=== PATIENT | female | born 1960 | race Caucasian/White ===

== ENCOUNTER 2024-03-06 08:56 | Emergency (ER) | payer MEDICARE, SELFPAY ==
--- NOTE | 2024-03-06 09:00 | XRR_ITS ---
PROCEDURE INFORMATION: Exam: XR Chest Exam date and time: 03/06/2024 9:17 AM Age: 64 years old Clinical indication: Cough and dyspnea; Additional info: Dyspnea/cough TECHNIQUE: Imaging protocol: Radiologic exam of the chest. Views: 1 view. COMPARISON: No relevant prior studies available. FINDINGS: Lungs: Unremarkable. No consolidation. Pleural spaces: Unremarkable. No pleural effusion. No pneumothorax. Heart/Mediastinum: Unremarkable. No cardiomegaly. Bones/joints: Unremarkable. XR/XR chest 1V portable [id number] IMPRESSION: No acute findings.
--- NOTE | 2024-03-06 09:02 | ED_ITS ---
HPI - General Adult 2 General: Chief complaint: Headache Stated complaint: B/p high,headache,n Time Seen by Provider: 03/06/24 09:00 History of Present Illness: 64-year-old female 64-year-old female pr esents to the emergency room with complaints of headache elevated blood pressure generally not feeling well. She has not had any difficulty with speech. She has had some nausea with and dizziness. She was recently diagnosed with hypertension and started on lisinopril she is also been started on Lexapro although she stopped that after 3 days she is only taking 10 mg a day no recent head trauma. She has no focal neurologic deficits. She has noted some loose stool but no other symptoms. Associated symptoms: Deny chest pain, dyspnea or rash Related Data Previous Rx's Medication Instructions Recorded lisinopril 20 mg tablet 20 mg PO BID #30 tabs 03/06/24 Allergies Allergy/AdvReac Type Severity Reaction Status Date / Time No Known Allergies Allergy Verified 03/06/24 09:11 Review of Systems 2 Const: Denies: fever(s) or chills Card: Denies: chest pain Resp: Denies: dyspnea GI: Denies: abdominal pain : Denies: dysuria, urinary frequency or urinary urgency Musc: Denies: neck pain or back pain Skin/Breast: Denies: rash PFSH ED 2 PFSH: Medical History (Updated 03/06/24 @ 10:45 by Barrera Lewis DO) Anxiety Depression Hypertension Physical Exam 2 Const: COMMON NORMALS: no acute distress GENERAL APPEARANCE: cooperative and comfortable ORIENTATION/CONSCIOUSNESS: Yes awake, Yes oriented to person, Yes oriented to place and Yes oriented to time HENMT: COMMON NORMALS: normocephalic, atraumatic and hearing grossly normal bilaterally HEAD & SCALP: normocephalic and atraumatic Resp: COMMON NORMALS: normal respiratory effort, No retractions, No use of accessory muscles and clear to auscultation bilaterally AUSCULTATION: clear to auscultation bilaterally Cardio: COMMON NORMALS: regular rate, regular rhythm and No murmurs present (Cardio) RATE: regular rate RHYTHM: regular rhythm GI: COMMON NORMALS: Soft to palpation and No hepatosplenomegaly present A USCULTATION: Yes normoactive bowel sounds PALPATION: Yes Soft to palpation, No Tenderness to palpation present (GI), No Guarding due to palpation present (GI) and Yes No hepatosplenomegaly present Extremity: COMMON NORMALS: normal to inspection, capillary refill normal, no clubbing, cyanosis or edema, no calf tenderness and no pedal edema Neuro: SENSORIUM/ORIENTATION: Yes oriented to person, Yes oriented to place and Yes oriented to time Skin: COMMON NORMALS: no rashes or lesions noted GENERAL SKIN EXAM: no rashes or lesions noted Course 2 Vital Signs: Vital signs: Vital Signs Temperature 98.1 F 03/06/24 09:04 Pulse Rate 69 03/06/24 10:52 Respiratory Rate 17 03/06/24 10:52 Blood Pressure 133/86 03/06/24 10:52 Pulse Oximetry 96 03/06/24 10:52 Oxygen Delivery Me thod Room Air 03/06/24 09:04 MDM - General Adult Medical Decision Making Blood pressure is improved. Neurologic exam does not show any deficits. Her headache has improved blood pressure is normalized still mildly high. She is able to ambulate without difficulty. She has no ataxia. Will discharge patient home with increasing her lisinopril to 20 mg twice daily. Have her follow-up with her primary care doctor return if she has any problems. Medical Records I reviewed the patient's medical records. Lab Data I reviewed the patient's lab results. 03/06/24 09:10 03/06/24 09:10 Radiology Impressions Chest X-Ray 03/06/24 09:00 IMPRESSION: No acute findings. Head CT 03/06/24 09:26 IMPRESSION: 1. Atrophy with minimal small-vessel ischemic change. Laboratory Results WBC 9.19 10^3/uL (3.29-11.43) 03/06/24 09:10 RBC 5.33 10^6/uL (3.85-5.65) 03/06/24 09:10 Hgb 15.00 g/dL (11.27-16.99) 03/06/24 09:10 Hct 44.0 % (36-47) 03/06/24 09:10 MCV 82.6 fl (85-98) L 03/06/24 09:10 MCH 28.1 pg (27-33) 03/06/24 09:10 MCHC 34.1 g/dL (30-55) 03/06/24 09:10 RDW 13.5 % (12.1-15.1) 03/06/24 09:10 Plt Count 269 10^3/cmm (157-399) 03/06/24 09:10 MPV 9.8 fL (7.4-10.4) 03/06/24 09:10 Neut % (Auto) 74.3 % 03/06/24 09:10 Lymph % (Auto) 18.3 % 03/06/24 09:10 [place] % (Auto) 5.0 % 03/06/24 09:10 Eos % (Auto) 1.2 % 03/06/24 09:10 Baso % (Auto) 0.4 % 03/06/24 09:10 Neut # (Auto) 6.83 10^3/uL (1.8-7.7) 03/06/24 09:10 Lymph # (Auto) 1.7 10^3/uL (0.8-4.8) 03/06/24 09:10 [place] # (Auto) 0.5 10^3/uL (0.2-0.9) 03/06/24 09:10 Eos # (Auto) 0.1 10^3/uL (0.0-0.8) 03/06/24 09:10 Baso # (Auto) 0.0 10^3/uL (0.0-0.1) 03/06/24 09:10 Nucleated RBC % (auto) 0 % 03/06/24 09:10 Nucleated RBCs # 0.0 /100WBC 03/06/24 09:10 Sodium 138 mmol/L (136-145) 03/06/24 09:10 Potassium 4.6 mmol/L (3.5-5.1) 03/06/24 09:10 Chloride 100 mmol/L (98-107) 03/06/24 09:10 Carbon Dioxide 27 mmol/L (22-29) 03/06/24 09:10 Anion Gap 15.6 (5-19) 03/06/24 09:10 BUN 15 mg/dL (8-23) 03/06/24 09:10 Creatinine 0.9 mg/dL (0.5-0.9) 03/06/24 09:10 GFR Calculation 62.8 mL/min (90-130) L 03/06/24 09:10 Glucose 138 mg/dL (65-115) H 03/06/24 09:10 Calculated Osmolality 289 mOsm/kg (285-295) 03/06/24 09:10 Calcium 9.4 mg/dL (8.5-10.5) 03/06/24 09:10 Total Bilirubin 0.6 mg/dL (0.15-1.2) 03/06/24 09:10 AST 30 U/L (0-32) 03/06/24 09:10 ALT 17 U/L (0-33) 03/06/24 09:10 Alkaline Phosphatase 113 U/L (35-105) H 03/06/24 09:10 Total Protein 7.4 g/dL (6.6-8.7) 03/06/24 09:10 Albumin 4.6 g/dL (3.5-5.2) 03/06/24 09:10 Globulin 2.8 g/dL (1.3-4.6) 03/06/24 09:10 Coronavirus (PCR) Negative (Negative) 03/06/24 09:35 Influenza A (PCR) Negative (Negative) 03/06/24 09:35 Influenza Type B (PCR) Negative (Negative) 03/06/24 09:35 RSV (PCR) Negative (Negative) 03/06/24 09:35 All radiology interpretation(s) finalized by discharge Discharge Plan Discharge Patient Disposition: Home Clinical Impression: Hypertension, Headache Prescriptions: New lisinopril 20 mg tablet 20 mg PO BID Qty: 30 0RF Discharge Orders: Discharge ED (Routine); Ordered 03/06/24 Ordered By: Barrera Lewis Discharge Diet: Usual diet Discharge Activity: Increase activity as tolerated Patient Instructions: Opioid Safety, Pain Management Activity Restrictions/Additional Instructions: Thank you for choosing [facility] for your healthcare needs today. It is very important that you follow up as instructed or that you return to the Emergency Department should you have concerns or if your condition changes or worsens in any way. You were seen today for elevated blood pressure and headache. Laboratory tests and EKG was normal. 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
[2024-03-06 09:04] VITALS: BP 212/95; PULSE 76; RESP 16; TEMP 36.7; O2SAT 100; BMI 34.4
--- NOTE | 2024-03-06 09:04 | ECG_ITS ---
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 Measurements Intervals [place] Rate: 73 P: 42 ID: [id number] QRS: 14 QRSD: 86 T: 30 QT: 381 QTc: 422 Interpretive Statements SINUS RHYTHM LOW QRS VOLTAGE IN PRECORDIAL LEADS [QRS DEFLECTION < 1.0 mV IN CHEST LEADS] No previous ECG available for comparison Electronically Signed On 03-08-2024 18:51:58 CDT by Freddy Berrios M.D. [id number]
[2024-03-06 09:15] LABS: Basophils % 0.4 %; Eosinophils # 0.1 10^3/uL (0.0-0.8); Eosinophils % 1.2 %; Lymphocytes # 1.7 10^3/uL (0.8-4.8); Lymphocytes % 18.3 %; Mean Corpuscular HGB Conc 34.1 g/dL (30-55); Mean Corpuscular Hemoglobin 28.1 pg (27-33); Mean Corpuscular Volume 82.6 fl (85-98); Mean Platelet Volume 9.8 fL (7.4-10.4); Monocytes # 0.5 10^3/uL (0.2-0.9); Neutrophils # 6.83 10^3/uL (1.8-7.7); Neutrophils % 74.3 %; Nucleated Red Blood Cells % 0 %; Platelet Count 269 10^3/cmm (157-399); Red Blood Count 5.33 10^6/uL (3.85-5.65); Red Cell Distribution Width 13.5 % (12.1-15.1); White Blood Count 9.19 10^3/uL (3.29-11.43)
--- NOTE | 2024-03-06 09:26 | CTR_ITS ---
PROCEDURE INFORMATION: Exam: CT Head Without Contrast Exam date and time: 03/06/2024 9:37 AM Age: 64 years old Clinical indication: Pain; Headache; Vascular; Additional info: Headache elevated blood pressure TECHNIQUE: Imaging protocol: Computed tomography of the head without contrast. Radiation optimization: All CT scans at this facility use at least one of these dose optimization techniques: automated exposure control; mA and/or kV adjustment per patient size (includes targeted exams where dose is matched to clinical indication); or iterative reconstruction. COMPARISON: No relevant prior studies available. RADIATION DOSE METRICS: Total DLP (mGy-cm): 1005.88 FINDINGS: Brain: There is prominence of the subarachnoid spaces compatible with atrophy. There is small-vessel ischemic change within the periventricular white matter. There is no evidence of an acute stroke or hemorrhage. Cerebral ventricles: No ventriculomegaly. Paranasal sinuses: Visualized sinuses are unremarkable. No fluid levels. Mastoid air cells: Visualized mastoid air cells are well aerated. Bones: Unremarkable. No acute fracture. Soft tissues: Unremarkable. CT/CT head wo con* [id number] IMPRESSION: 1. Atrophy with minimal small-vessel ischemic change.
[2024-03-06 09:33] LABS: Alanine Aminotransferase 17 U/L (0-33); Albumin Level 4.6 g/dL (3.5-5.2); Alkaline Phosphatase 113 U/L (35-105); Anion Gap 15.6 (5-19); Aspartate Amino Transferase 30 U/L (0-32); Blood Urea Nitrogen 15 mg/dL (8-23); Calcium 9.4 mg/dL (8.5-10.5); Carbon Dioxide 27 mmol/L (22-29); Chloride 100 mmol/L (98-107); Creatinine Clr Calc Pharmacy 68.1661; Globulin 2.8 g/dL (1.3-4.6); Glomerular Filtration Rate 62.8 mL/min (90-130); Glucose 138 mg/dL (65-115); Osmolality Calculated 289 mOsm/kg (285-295); Potassium 4.6 mmol/L (3.5-5.1); Sodium 138 mmol/L (136-145); Total Bilirubin 0.6 mg/dL (0.15-1.2); Total Protein 7.4 g/dL (6.6-8.7)
[2024-03-06 09:50] VITALS: BP 155/114; PULSE 76; RESP 17; O2SAT 98
[2024-03-06 10:11] VITALS: BP 150/86; PULSE 75; RESP 14; O2SAT 97
[2024-03-06 10:16] LABS: Covid PCR NEGATIVE (Negative); Influenza A NEGATIVE (Negative); Influenza B NEGATIVE (Negative); Respiratory Syncytial Virus Ce NEGATIVE (Negative)
[2024-03-06 10:52] VITALS: BP 133/86; PULSE 69; RESP 17; O2SAT 96
== END 2024-03-06 10:55 | disposition home or self-care (01) ==
PROVIDERS: Emergency Provider Family Medicine
DX: I10 Essential (primary) hypertension (principal); R51.9 Headache, unspecified; Z91.148 Patient's other noncompliance with medication regimen for other reason
CPT/HCPCS: 0241U; 70450; 71045; 80053; 85025; 93005; 99285

== ENCOUNTER → 2024-06-30 11:28 | Outpatient (BNVA) | payer MEDICARE, SELFPAY | PROVIDERS: PCP Family Medicine; Visit Provider Podiatrist Foot & Ankle Surgery | DX: M25.572 Pain in left ankle and joints of left foot (principal); S99.812A Other specified injuries of left ankle, initial encounter; W10.8XXA Fall (on) (from) other stairs and steps, initial encounter; Z46.89 Encounter for fitting and adjustment of other specified devices | CPT/HCPCS: 73610 ==

== ENCOUNTER 2024-06-30 13:47 | Outpatient (CLI) | payer MEDICARE, SELFPAY | END 2024-06-30 13:48 | disposition home or self-care (01) | LOC: SPT 13:49 | PROVIDERS: PCP Family Medicine; Visit Provider Podiatrist Foot & Ankle Surgery | DX: Z46.89 Encounter for fitting and adjustment of other specified devices (principal); M25.572 Pain in left ankle and joints of left foot | CPT/HCPCS: 99203; L4361 ==

== ENCOUNTER 2024-10-20 11:15 | Outpatient (CLI) | payer MEDICARE, SELFPAY ==
--- NOTE | 2024-10-20 11:18 | MM_ITS ---
WS: [id number] BILATERAL 3D TOMOSYNTHESIS DIGITAL SCREENING MAMMOGRAPHY WITH CAD CLINICAL INFORMATION: SCREENING HISTORY: Screening mammogram. No current complaints. COMPARISON: 2018 TECHNIQUE: Bilateral CC and MLO views. FINDINGS: Stable RIGHT breast implant with capsular calcifications Scattered fibroglandular densities bilaterally. No suspicious focal mass, asymmetry, calcifications, or architectural distortion. No evidence of malignancy. MM/MM scr tomosynthesis [id number] IMPRESSION: DENSITY: There are scattered areas of fibroglandular density. BI-RADS: 2 - Benign. FOLLOW UP: 1 Year Follow-up Recommend return to annual screening mammography.
== END 2024-10-20 11:16 | disposition home or self-care (01) ==
PROVIDERS: PCP Family Medicine; Visit Provider Family Medicine
DX: Z12.31 Encounter for screening mammogram for malignant neoplasm of breast (principal); R92.323 Mammographic fibroglandular density, bilateral breasts; Z98.82 Breast implant status; N64.89 Other specified disorders of breast
CPT/HCPCS: 77063; 77067